=== PATIENT | female | born 1945 | race Caucasian/White ===

== ENCOUNTER 2017-10-14 07:49 | Emergency (ER) | payer MEDICARE ==
[~2017-10-14 07:49] MED LIST: Sodium Chloride 0.9% 1,000 ML BAG ONE
[2017-10-14 09:08] LABS: INR-International Normal Ratio 1.5; Prothrombin Time 18.3 SEC (12.0-14.7)
[2017-10-14 09:09] LABS: CKMB 2.6 ng/mL (0-6.6); Troponin I 0.112 ng/mL (< 0.028)
[2017-10-14 09:10] LABS: Sodium 130 mmol/L (136-145)
[2017-10-14 09:11] LABS: Potassium 6.9 mmol/L (3.5-5.1)
[2017-10-14 09:12] LABS: AST (SGOT) 329 U/L (5-34); Albumin 2.6 g/dL (3.4-4.8); Alkaline Phosphatase 130 U/L (40-150); Anion Gap 25 mmol/L (10-20); BUN (Urea Nitrogen) 30 mg/dL (9.8-20.1); Bilirubin, Total 0.9 mg/dL (0.2-1.2); Calc. Creatinine Clearance 0 mL/min (70-130); Carbon Dioxide 12 mmol/L (23-31); Chloride 100 mmol/L (98-107); Estimated GFR-MDRD 24; Globulin 2.9 g/dL (2.4-3.5); Glucose 196 mg/dL (83-110); Protein, Total 5.5 g/dL (5.8-8.1)
[2017-10-14 09:13] LABS: ALT (SGPT) 206 U/L (8-55)
[2017-10-14 09:15] LABS: #Basophils 0.1 thou/uL (0.0-0.2); #Eosinphils 0.4 thou/uL (0.0-0.7); #Lymphocytes 5.2 thou/uL (1.20-3.40); #Monocytes 0.3 thou/uL (0.11-0.59); #Neutrophils 6.6 thou/uL (1.40-6.50); %Basophils 0.9 % (0.0-1.0); %Eosinophils 3.5 % (0.0-10.0); %Lymphocytes 40.8 % (21.0-51.0); %Monocytes 2.7 % (0.0-10.0); %Neutrophils 52.1 % (42.0-75.0); Mean Corpuscular HGB CONC 32.4 g/dL (32.0-36.0); Mean Corpuscular Hemoglobin 30.8 pg (27.0-31.0); Mean Corpuscular Volume 94.9 fl (81.0-99.0); Mean Platelet Volume 6.1 fL (7.4-10.4); Platelet Count 271 thou/uL (130-400); RBC Distribution Width 13.9 % (11.5-14.5); Red Blood Cell (RBC) Count 2.92 mill/uL (4.20-5.40); White Blood Cell (WBC) Count 12.6 thou/uL (4.8-10.8)
[2017-10-14] MEDS ORDERED: Atropine Sulfate 1 mg/10 ml Syringe ONE (13:08)
[2017-10-14] MEDS ORDERED: Sodium Bicarb 50 MEQ/50 ML Abboject 8.4% SYRINGE ONE (13:08)
[2017-10-14] MEDS ORDERED: EPINEPHrine 1 MG/10 ML Abboject SYRINGE ONE (13:08)
== END 2017-10-14 09:10 | disposition short-term general hospital (02) ==
LOC: MADERS 07:49
DX: R09.2 Respiratory arrest (principal); E66.9 Obesity, unspecified; E78.5 Hyperlipidemia, unspecified; I10 Essential (primary) hypertension; J45.909 Unspecified asthma, uncomplicated; Z86.73 Personal history of transient ischemic attack (TIA), and cerebral infarction without residual deficits
CPT/HCPCS: 51702; 80053; 82553; 84484; 85025; 85610; 85730; 92950; 96374; 96375; 99292; J0171; J0461; J7050